=== PATIENT | female | born 1960 | race Caucasian/White ===

== ENCOUNTER 2016-08-17 15:02 | Emergency (ER) | payer OTHER ==
[~2016-08-17] VITALS: Ht 157.5 cm; Wt 63.5 kg
[~2016-08-17 15:02] MED LIST: LISI-420 PO; OMEP40EC1 PO
[2016-08-17 17:04] VITALS: BP 160/94
--- NOTE | 2016-08-17 18:55 | NUR ---
Patient to bed 06.
--- NOTE | 2016-08-17 19:15 | NUR ---
PT PRESENTS TO ER W/C/O ABDOMINAL PAIN AND DIARRHEA X3 DAYS. HX HTN. PT C/O OF AB PAIN THAT RADIATES TO THE PELVIC 4/10 PAIN SCALE ; HX GALLBLADDER REMOVED 7 YEARS AGO
[2016-08-17 20:42] VITALS: BP 142/91
--- NOTE | 2016-08-17 20:42 | NUR ---
Patient discharged with v/s stable. Written and verbal after care instructions given and explained. Patient alert, oriented and verbalized understanding of instructions. Ambulatory with steady gait. All questions addressed prior to discharge. ID band removed. Patient advised to follow up with PMD. Rx of TRAMADOL 50MG AND IMODIUM A-D given. Patient educated on indication of medication including possible reaction and side effects. Opportunity to ask questions provided and answered.
== END 2016-08-17 20:42 | disposition home or self-care (01) ==
LOC: MED 15:02
DX: R10.13 Epigastric pain (principal); R19.7 Diarrhea, unspecified; I10 Essential (primary) hypertension
CPT/HCPCS: 74022; 81002; 81025; 99283; 99284

== ENCOUNTER 2017-09-28 17:46 | Emergency (ER) | payer OTHER ==
[~2017-09-28] VITALS: Ht 149.9 cm; Wt 71.7 kg
[2017-09-28 18:49] VITALS: BP 182/94
--- NOTE | 2017-09-28 18:53 | NUR ---
PT AMBULATES BACK TO THE LOBBY
--- NOTE | 2017-09-28 19:00 | NUR ---
Note undone in EDM - 09/28/17 at 2228 by [email or web address] 57 YO F BIB SELF W/ C/O RT EYE STYE WITH PAIN 5/10 X 4 DAYS WITH WATERY/CLEAR DISCHARGE. PT A&O X 4. GCS 15. CMS INTACT. NO VISUAL DISTURBANCES. RR EVEN AND UNLABORED. LUNGS BILATERALLY CLEAR. ER MD SINGH NOTIFIED. PT NEEDS MET. SAFETY PRECAUTIONS IN PLACE. WILL CONTINUE TO MONITOR.
--- NOTE | 2017-09-28 22:10 | NUR ---
PT AMBULATED TO BED 3
--- NOTE | 2017-09-28 22:28 | NUR ---
ACCIDENTALLY DOCUMENTED COMPLETE ASSESSMENT AT 1900, CORRECT TIME IS 2209.
--- NOTE | 2017-09-28 22:28 | NUR ---
57 YO F BIB SELF W/ C/O RT EYE STYE WITH PAIN 5/10 X 4 DAYS WITH WATERY/CLEAR DISCHARGE. PT A&O X 4. GCS 15. CMS INTACT. NO VISUAL DISTURBANCES. RR EVEN AND UNLABORED. LUNGS BILATERALLY CLEAR. ER MD SINGH NOTIFIED. PT NEEDS MET. SAFETY PRECAUTIONS IN PLACE. WILL CONTINUE TO MONITOR.
--- NOTE | 2017-09-28 23:14 | NUR ---
PT RESTING COMFORTABLY ON [facility] AT THIS TIME. WILL CONTINUE TO MONITOR.
[2017-09-28 23:38] VITALS: BP 182/94
--- NOTE | 2017-09-28 23:38 | NUR ---
Patient discharged with v/s stable. Written and verbal after care instructions given and explained. Patient alert, oriented and verbalized understanding of instructions. Ambulatory with steady gait. All questions addressed prior to discharge. ID band removed. Patient advised to follow up with PMD. Rx of Bleph-10 given. Patient educated on indication of medication including possible reaction and side effects. Opportunity to ask questions provided and answered.
== END 2017-09-28 23:38 | disposition home or self-care (01) ==
LOC: MED 17:46
DX: H00.021 Hordeolum internum right upper eyelid (principal); I10 Essential (primary) hypertension; Z79.899 Other long term (current) drug therapy
CPT/HCPCS: 99283